=== PATIENT | male | born 1970 | race Caucasian/White ===

== ENCOUNTER → 2020-07-29 | Outpatient (CLI) | payer MEDICARE, OTHER ==
--- NOTE | 2020-07-29 13:03 | MR ---
EXAMINATION TYPE: MR lumbar spine wo con DATE OF EXAM: 07/29/2020 COMPARISON: None HISTORY: Hip and lower back pain TECHNIQUE: Multiplanar, multisequence images of the lumbar spine were acquired. L1-L2: Normal disc appearance without desiccation. No herniation, protrusion or disc bulging. No ca nal stenosis is present. Foramina are patent bilaterally. L2-L3: Normal disc appearance without desiccation. No herniation, protrusion or disc bulging. No ca nal stenosis is present. Foramina are patent bilaterally. L3-L4: Posterior disc bulge causes mild anterior mass effect on the thecal sac. There is some facet a rthropathy change. L4-L5: Posterior broad-based disc bulge causes anterior mass effect on the thecal sac. May be contact with the proximal L5 nerve roots. There is some mild facet arthropathy change. L5-S1: Listhesis contributes cause encroachment. There is some facet arthropathy change. Minimal post erior disc bulge noted. Lumbar segments are intact. No paraspinal masses are identified. Conus medullaris has a normal appe arance. There is an anterolisthesis grade 1 L5-S1. Spondylolysis present bilaterally at L5. Lumbar ve rtebral bodies show preserved height, there is multilevel spondylosis with endplate discogenic marrow signal change. Loss of disc height signal greatest at L4-5. There is no significant spinal stenosis or foraminal encroachment with exception of L5-S1. Probable hemangioma present within the T12 vertebr al body. IMPRESSION: Degenerative disc disease, spondylolysis, spondylolisthesis, facet arthropathy.
== END | disposition home or self-care (01) ==
LOC: RADMRIMAIN 10:15
PROVIDERS: ATTEND Nurse Practitioner
DX: M43.16 Spondylolisthesis, lumbar region (principal); M51.36 Other intervertebral disc degeneration, lumbar region; M47.816 Spondylosis without myelopathy or radiculopathy, lumbar region
CPT/HCPCS: 72148